=== PATIENT | female | born 1980 | race African-American/Black ===

== ENCOUNTER 2018-06-20 01:45 | Emergency (ER) | payer SELFPAY ==
[~2018-06-20] VITALS: Ht 162.6 cm; Wt 82.1 kg
[2018-06-20 02:20] LABS: HEMATOCRIT 29.5 % (36.0-46.0); HEMOGLOBIN 8.8 G/DL (11.9-15.5); MCHC 29.8 G/DL (30.0-36.0); MCV 67.2 FL (83-99); PLATELET COUNT 383 K/uL (156-360); RBC DIS.WIDTH-CV 17.2 % (11.8-14.6); RED BLOOD COUNT 4.39 M/uL (3.80-5.20); WHITE BLOOD COUNT 10.5 K/uL (4.1-10.2)
[2018-06-20 02:26] LABS: ALBUMIN 3.9 g/dL (3.2-4.8); CHLORIDE 106 mEq/L (99-109); POTASSIUM 3.9 mEq/L (3.7-5.4); SODIUM 137 mEq/L (136-147)
[2018-06-20 02:29] LABS: GLUCOSE 112 mg/dL (70-99)
[2018-06-20 02:29] LABS: APPEARANCE CLEAR ((CLEAR)); BILIRUBIN NEGATIVE; BLOOD NEGATIVE; COLOR STRAW ((YELLOW)); GLUCOSE (STRIP) NEGATIVE; KETONES NEGATIVE; LEUKOCYTES NEGATIVE; NITRITE NEGATIVE; PROTEIN (STRIP) NEGATIVE; SPECIFIC GRAVITY 1.003 (1.000-1.030); UCUL ADDED? NO; UROBILINOGEN 0.2 MG/DL (0.2-1.0)
[2018-06-20 02:31] LABS: TOTAL BILIRUBIN 0.5 mg/dL (0.0-1.0)
[2018-06-20 02:32] LABS: ALKALINE PHOSPHATASE 80 IU/L (3-129); CREATININE 0.8 mg/dL (0.6-1.3)
[2018-06-20 02:33] LABS: UREA NITROGEN (BUN) 10 mg/dL (9-23)
[2018-06-20 02:34] LABS: AST (GOT) 13 IU/L (2-34)
[2018-06-20 02:35] LABS: ALT (GPT) 8 IU/L (3-49)
[2018-06-20 02:38] LABS: GFR ESTIMATE (CALCULATED) > 59 mL/min/
[2018-06-20 02:41] LABS: QUANTITATIVE HCG < 4.0 MIU/ML
[2018-06-20 04:11] LABS: LIPASE 44 U/L (1.0-51.0)
[2018-06-20] MEDS ORDERED: IBU600 MG PO (06:34)
[2018-06-20 06:38] VITALS: BP 111/82
== END 2018-06-20 06:43 | disposition home or self-care (01) ==
LOC: EME 01:45
DX: D25.9 Leiomyoma of uterus, unspecified (principal); D64.9 Anemia, unspecified; F50.89 Other specified eating disorder; Z98.890 Other specified postprocedural states
CPT/HCPCS: 74177; 76856; 80053; 81003; 83690; 84702; 85027; 99281; 99285; J1885; J2405; J7030